=== PATIENT | female | born 2000 | race Caucasian/White ===

== ENCOUNTER 2022-11-24 08:00 | Outpatient (CLI) | payer OTHER ==
[2022-11-24 15:28] LABS: BILIRUBIN,URINE NEGATIVE (NEGATIVE); GLUCOSE, URINE (UA) NEGATIVE (NEGATIVE); KETONES,URINE (UA) NEGATIVE (NEGATIVE); LEUKOCYTE ESTERASE, URINE MODERATE (NEGATIVE); NITRITE,URINE NEGATIVE (NEGATIVE); OCCULT BLOOD,URINE NEGATIVE (NEGATIVE); PROTEIN,URINE NEGATIVE (NEGATIVE); UROBILINOGEN,URINE 0.2 (NORMAL) E.U./dL (NORMAL)
[2022-11-24 15:41] LABS: BACTERIA,URINE Few /HPF (None Seen); CLARITY,URINE HAZY (CLEAR); RBC,URINE 0-5 /HPF (0-5); SQUAMOUS EPITHELIAL CELL,UR MOD Squamous (<= Few); WBC,URINE >25 /HPF (0-5)
== END 2022-11-24 23:59 | disposition home or self-care (01) ==
LOC: LAB.WC 08:00
PROVIDERS: ATTEND Obstetrics & Gynecology
DX: Z34.00 Encounter for supervision of normal first pregnancy, unspecified trimester (principal)
CPT/HCPCS: 81001; 87086

== ENCOUNTER 2022-12-07 16:59 | Outpatient (CLI) | payer OTHER ==
[2022-12-07 17:57] LABS: BASOPHILS # (AUTO) 0.1 10^3/uL (0.0-0.1); BASOPHILS % (AUTO) 0.4 %; EOSINOPHILS # (AUTO) 0.1 10^3/uL (0.0-0.7); EOSINOPHILS % (AUTO) 1.1 %; HCT - HEMATOCRIT 36.1 % (37.0-47.0); HGB - HEMOGLOBIN 12.4 g/dL (12.0-16.0); LYMPHOCYTES # (AUTO) 2.9 10^3/uL (1.5-3.5); LYMPHOCYTES % (AUTO) 23.1 %; MEAN CORPUSCULAR HEMOGLOBIN 31.2 pg (27.0-31.0); MEAN CORPUSCULAR HGB CONC 34.3 g/dL (32.0-36.0); MEAN CORPUSCULAR VOLUME 90.7 fL (81.0-99.0); MEAN PLATELET VOLUME 9.5 fL (7.9-10.8); MONOCYTES % (AUTO) 7.6 %; NEUTROPHILS # (AUTO) 8.5 10^3/uL (1.5-6.6); NEUTROPHILS % (AUTO) 67.4 %; PLT - PLATELET COUNT 253 10^3/uL (130-450); RED BLOOD COUNT 3.98 10^6/uL (4.20-5.40); RED CELL DISTRIBUTION WIDTH 12.1 % (12.0-15.0); WHITE BLOOD COUNT 12.7 x10^3/uL (4.8-10.8)
--- NOTE | 2022-12-08 10:08 | Ultrasound Report ---
PROCEDURE: OB First Trimester w/TV INDICATIONS: TEST POSTIVIE OUTSIDE/PRIOR DATING DATA: Last menstrual period (LMP): 10/05/2022. LMP-based estimated date of delivery (ELGIN): 07/12/2023. First dating scan (date and location): 12/07/2022. Estimated date of delivery (ELGIN) from first dating scan: 07/14/2023. The below data below was generated using the ultrasound ELGIN of 07/14/2023 TECHNIQUE: Real-time scanning was performed of the fetus and maternal pelvic organs, with image documentation. Endovaginal scanning was also performed to better visualize the fetus and maternal ovaries. COMPARISON: None FINDINGS: Single living intrauterine . Embryo: 2.1 cm, corresponding to 8 weeks 5 days. Heart rate: 173 bpm. Measurement variability in dating: +/- 4 weeks by LMP, +/- 7 days by mean sac diameter (use before 6 weeks gestation if crown-rump length not able to be measured), +/- 5 days by crown-rump length (6-12 weeks gestation). Maternal organs: Ovaries are unremarkable. IMPRESSION: Single living intrauterine at 8 weeks 5 days, ELGIN of 07/14/2023. Reviewed by: Sterling Carroll on 12/08/2022 10:06 AM PDT Approved by: Sterling Carroll on 12/08/2022 10:06 AM PDT Station ID: [id number]
[2022-12-09 08:10] LABS: RPR Non Reactive (Non Reactive)
[2022-12-09 10:09] LABS: HBsAG SCREEN Negative (Negative)
[2022-12-09 11:10] LABS: VARICELLA-ZOSTER AB IGG 336 index (Immune >165)
[2022-12-10 00:08] LABS: HCV AB Non Reactive (Non Reactive); HIV SCREEN 4TH GENERATION Non Reactive (Non Reactive)
== END 2022-12-07 17:00 | disposition home or self-care (01) ==
LOC: DI 16:59
PROVIDERS: ATTEND Obstetrics & Gynecology
DX: Z34.01 Encounter for supervision of normal first pregnancy, first trimester (principal); Z3A.08 8 weeks gestation of pregnancy; Z36.89 Encounter for other specified antenatal screening
CPT/HCPCS: 36415; 85025; 86592; 86762; 86787; 86803; 86850; 86900; 86901; 87340; 87389

== ENCOUNTER 2022-12-23 08:00 | Outpatient (CLI) | payer OTHER ==
[2022-12-23 19:34] LABS: BACTERIAL VAGINOSIS DNA NEGATIVE (NEGATIVE)
[2022-12-23 19:35] LABS: CANDIDA GLABRATA DNA NEGATIVE (NEGATIVE); CANDIDA GROUP DNA NEGATIVE (NEGATIVE); CANDIDA KRUSEI DNA NEGATIVE (NEGATIVE); TRICHOMONAS VAGINALIS DNA NEGATIVE (NEGATIVE)
== END 2022-12-23 23:59 | disposition home or self-care (01) ==
LOC: LAB.WC 08:00
PROVIDERS: ATTEND Obstetrics & Gynecology
DX: N76.0 Acute vaginitis (principal)
CPT/HCPCS: 81514

== ENCOUNTER 2023-01-13 08:00 | Outpatient (CLI) | payer OTHER ==
[2023-01-13 20:52] LABS: CHLAMYDIA TRACHOMATIS DNA NEGATIVE (NEGATIVE); NEISSERIA GONORRHOEAE DNA NEGATIVE (NEGATIVE); TRICHOMONAS VAGINALIS DNA NEGATIVE (NEGATIVE)
== END 2023-01-13 23:59 | disposition home or self-care (01) ==
LOC: LAB.WC 08:00
PROVIDERS: ATTEND Obstetrics & Gynecology
DX: Z11.3 Encounter for screening for infections with a predominantly sexual mode of transmission (principal)
CPT/HCPCS: 87491; 87591; 87661

== ENCOUNTER 2023-02-01 13:51 | Outpatient (CLI) | payer OTHER ==
[2023-02-03 20:07] LABS: AFP MOM 0.54 (.); AFP VALUE 19.7 ng/mL (.); DIA MOM 0.92 (.); DIA VALUE 130.31 pg/mL (.); DSR (BY AGE) 1 IN 1078 (.); DSR (SECOND TRIMESTER) 1 IN 898 (.); HCG MOM 1.11 (.); HCG VALUE 35447 mIU/mL (.); INSULIN DEP DIABETES No (.); MATERNAL AGE AT EDD 23.8 yr (.); MULTIPLE GESTATION No (.); OPEN SPINA BIFIDA RISK 1 IN 10000 (.); RACE Caucasian (.); RESULTS Report (.); TEST RESULTS *Screen Negative* (.); TRISOMY 18 RISK Not increased (.); UE3 MOM 0.59 (.); UE3 VALUE 0.67 ng/mL (.); WEIGHT 168 lbs (.)
== END 2023-02-01 13:52 | disposition home or self-care (01) ==
LOC: LAB 13:51
PROVIDERS: ATTEND Obstetrics & Gynecology
DX: Z34.01 Encounter for supervision of normal first pregnancy, first trimester (principal)
CPT/HCPCS: 36415; 81511

== ENCOUNTER 2023-02-02 20:23 | Emergency (ER) | payer OTHER ==
[2023-02-02 20:35] VITALS: BP 136/80
[2023-02-02 20:47] LABS: BASOPHILS % (AUTO) 0.3 %; EOSINOPHILS # (AUTO) 0.3 10^3/uL (0.0-0.7); EOSINOPHILS % (AUTO) 1.8 %; HCT - HEMATOCRIT 34.6 % (37.0-47.0); HGB - HEMOGLOBIN 11.7 g/dL (12.0-16.0); LYMPHOCYTES # (AUTO) 2.9 10^3/uL (1.5-3.5); LYMPHOCYTES % (AUTO) 18.9 %; MEAN CORPUSCULAR HEMOGLOBIN 30.4 pg (27.0-31.0); MEAN CORPUSCULAR HGB CONC 33.8 g/dL (32.0-36.0); MEAN CORPUSCULAR VOLUME 89.9 fL (81.0-99.0); MEAN PLATELET VOLUME 9.6 fL (7.9-10.8); MONOCYTES # (AUTO) 0.7 10^3/uL (0.0-1.0); MONOCYTES % (AUTO) 4.5 %; NEUTROPHILS # (AUTO) 11.3 10^3/uL (1.5-6.6); PLT - PLATELET COUNT 267 10^3/uL (130-450); RED BLOOD COUNT 3.85 10^6/uL (4.20-5.40); RED CELL DISTRIBUTION WIDTH 12.3 % (12.0-15.0); WHITE BLOOD COUNT 15.2 x10^3/uL (4.8-10.8)
[2023-02-02] MEDS ORDERED: MAG HYDROX/AL HYDROX/SIMETH 30 ML UDC PO STA (20:48)
[2023-02-02 21:01] LABS: ALBUMIN 3.5 g/dL (3.2-5.5); ALBUMIN/GLOBULIN RATIO 0.9 (1.0-2.2); BILIRUBIN,TOTAL 0.3 mg/dL (0.2-1.0); CALCIUM 9.3 mg/dL (8.5-10.3); CREATININE 0.7 mg/dL (0.4-1.0); POTASSIUM 3.2 mmol/L (3.5-5.0); TOTAL PROTEIN 7.2 g/dL (6.7-8.2)
--- NOTE | 2023-02-02 21:03 | ED Physician Documentation ---
History of Present Illness - Stated complaint Stated Complaint: PREG/ABD PX - Chief complaint Chief Complaint: Abd Pain - Additonal information Additional information: 22-year-old female who reports herself as 17 weeks presents to the emergency department for evaluation of upper abdominal pain and concerns that she may be having vaginal bleeding. She states that she has a sensation of her stomach being full and some heartburn. However this afternoon after urinating when she wiped there was small drops of blood on the tissue paper. She is not certain if she is having vaginal bleeding and thinks it may be due to a filipe as she did shave her pubic area today though does not remember a laceration. Patient is Rh Negative. G3, P0 Review of Systems Constitutional: reports: Reviewed and negative Throat: reports: Reviewed and negative Cardiac: reports: Reviewed and negative Respiratory: reports: Reviewed and negative : reports: Vaginal bleeding Skin: reports: Reviewed and negative Musculoskeletal: reports: Reviewed and negative PD PAST MEDICAL HISTORY - Present Medications Home Medications: Ambulatory Orders Medication Instructions Recorded Confirmed Azithromycin [Zithromax] 1 gm PO ONCE #1 packet 12/12/22 - Allergies Allergies/Adverse Reactions: Allergies Allergy/AdvReac Type Severity Reaction Status Date / Time No Known Drug Allergies Allergy Verified 02/02/23 20:32 PD ED PE NORMAL - General General: Alert and oriented X 3, No acute distress - HEENT HEENT: Atraumatic, Moist mucous membranes - Neck Neck: Supple, no meningeal sign, No adenopathy - Cardiac Cardiac: RRR, No murmur - Respiratory Respiratory: No respiratory distress, Clear bilaterally - Abdomen Abdomen: Normal bowel sounds, Soft - Female Female : Vulcanizer Operator present, Other (No obvious vaginal laceration or labial neck after shaving. No obvious vaginal bleeding) - Back Back: No CVA TTP - Derm Derm: Normal color - Extremities Extremities: No deformity - Neuro Neuro: Alert and oriented X 3 Eye Opening: Spontaneous Motor: Obeys Commands Verbal: Oriented GCS Score: 15 Results - Vitals Vitals: Vital Signs - 24 hr 02/02/23 20:26 Temperature 36.4 C L Heart Rate 80 Respiratory 20 Rate Blood Pressure 136/80 H O2 Saturation 98 - Labs Labs: Laboratory Tests 02/02/23 02/02/23 02/02/23 20:42 20:42 20:53 WBC 15.2 H RBC 3.85 L Hgb 11.7 L Hct 34.6 L MCV 89.9 MCH 30.4 MCHC 33.8 RDW 12.3 Plt Count 267 MPV 9.6 Neut # (Auto) 11.3 H Lymph # (Auto) 2.9 [place] # (Auto) 0.7 Eos # (Auto) 0.3 Baso # (Auto) 0.0 Absolute Nucleated RBC 0.00 Nucleated RBC % 0.0 Sodium 136 Potassium 3.2 L Chloride 105 Carbon Dioxide 24 Anion Gap 7.0 BUN 10 Creatinine 0.7 Estimated GFR (MDRD) 104 Glucose 124 H Calcium 9.3 Total Bilirubin 0.3 AST 18 ALT 22 Alkaline Phosphatase 42 Total Protein 7.2 Albumin 3.5 Globulin 3.7 Albumin/Globulin Ratio 0.9 L Lipase 37 Urine Color YELLOW Urine Clarity CLEAR Urine pH 6.0 Ur Specific [place] 1.015 Urine Protein NEGATIVE Urine Glucose (UA) NEGATIVE Urine Ketones NEGATIVE Urine Occult Blood NEGATIVE Urine Nitrite NEGATIVE Urine Bilirubin NEGATIVE Urine Urobilinogen 0.2 (NORMAL) Ur Leukocyte Esterase NEGATIVE Ur Microscopic Review NOT INDICATED Urine Culture Comments NOT INDICATED - Rads (name of study) OB limited Relevant Findings:: Other (Per mechanical engineering technologist good heart rate and movement. Normal-appearing placenta.) PD Medical Decision Making - ED course Complexity details: reviewed results, re-evaluated patient, d/w patient ED course: 22-year-old female presents the emergency department for evaluation which she was concerned could be vaginal bleeding. She had shaved her vaginal area today and does not remember cutting herself. However this afternoon when she urinated she wiped and found a little bit of blood on the tissue paper. She has not had a reoccurrence of it since. Patient is G3, P0. Being followed by our OB department. She is Rh-. I did obtain a CBC today that shows mild leukocytosis not unexpected given gestation as well as a mild anemia with a hemoglobin of 11.3. Her electrolytes were without acute worrisome findings. Her urinalysis showed no signs of infection. The limited OB ultrasound at the bedside showed good movement and heart rate with a normal-appearing placenta and no secondary findings for concern of placental abruption or subchorionic hemorrhage. Cervix was closed. However I did very briefly discussed this case with Dr. Pantoja OB on-call regarding the patient's concern for vaginal bleeding. I had no evidence of vaginal bleeding on my limited exam of her region. Dr. Pantoja does not feel that RhoGAM is necessary at this time unless she should have a recurrence of bleeding or new symptoms. Departure - Departure Disposition: 01 Home, Self Care Clinical Impression: Upper abdominal pain, Second trimester Condition: Stable Record reviewed to determine appropriate education?: Yes Comments: Yarelis you came to the emergency department today because you began to have some upper abdominal pain after eating [employer] and a Sprite. You most likely simply have gastritis or gas pains. I would recommend small frequent snacks and meals as opposed to 2 or 3 larger meals through the day. You can take [id number] Maalox or Tums for any indigestion. You did shave your pubic area today and on my evaluation I had no evidence of vaginal bleeding or any nicks or tears that could have explain the drops of blood you saw. We did do a very limited ultrasound at the bedside that shows the baby is doing well with normal heart rate and movement. Your cervix was closed and your placenta appears normal. You are Rh- and I very briefly discussed this case with our production internship on- call. She would not recommend RhoGAM for you at this time as you do not seem to be having active vaginal bleeding. However should the symptoms recur you do need to return immediately to the ER and RhoGAM would then be administered. Please discuss this ED visit with your OB provider as soon as possible to see if they want to arrange sooner follow-up
[2023-02-02 21:04] LABS: BILIRUBIN,URINE NEGATIVE (NEGATIVE); GLUCOSE, URINE (UA) NEGATIVE (NEGATIVE); KETONES,URINE (UA) NEGATIVE (NEGATIVE); LEUKOCYTE ESTERASE, URINE NEGATIVE (NEGATIVE); NITRITE,URINE NEGATIVE (NEGATIVE); OCCULT BLOOD,URINE NEGATIVE (NEGATIVE); PROTEIN,URINE NEGATIVE (NEGATIVE); UROBILINOGEN,URINE 0.2 (NORMAL) E.U./dL (NORMAL)
[2023-02-02 21:06] LABS: CLARITY,URINE CLEAR (CLEAR)
--- NOTE | 2023-02-02 22:18 | Ultrasound Report ---
PROCEDURE: OB Limited INDICATIONS: vaginal bleeding OUTSIDE/PRIOR DATING DATA: Last menstrual period (LMP): 09/27/2022. LMP-based estimated date of delivery (ELGIN): 07/12/2023. First dating scan (date and location): 12/25/2022. Estimated date of delivery (ELGIN) from first dating scan: 07/14/2023. The below data below was generated using the ultrasound ELGIN of 07/14/2023 TECHNIQUE: Real-time scanning was performed of the fetus, with image documentation. COMPARISON: OB ultrasound 12/10/2022 FINDINGS: A single living intrauterine gestation is present. Presentation: Anterior Placenta: Placental position is anterior, without previa. Amniotic fluid index: Not evaluated. heart rate: 152 beats per minutes. Maternal cervical canal: Closed Estimated gestational age from initial scan: 16 weeks 6 days. . IMPRESSION: Single live intrauterine with gestational age 16 weeks 6 days. Amniotic fluid not evaluated due to early gestational age. Reviewed by: Giselle Cleaning MD on 02/02/2023 10:17 PM PDT Approved by: Giselle Cleaning MD on 02/02/2023 10:17 PM PDT Station ID: [id number]
== END 2023-02-02 22:16 | disposition home or self-care (01) ==
LOC: ED 20:23
DX: O26.892 Other specified pregnancy related conditions, second trimester (principal); Z3A.17 17 weeks gestation of pregnancy; R10.10 Upper abdominal pain, unspecified
CPT/HCPCS: 36415; 76815; 80053; 81003; 83690; 85025; 99283; 99284; A9270; 81001; 87086

== ENCOUNTER 2023-04-15 10:33 | Outpatient (CLI) | payer OTHER ==
[2023-04-15 11:47] LABS: HCT - HEMATOCRIT 36.1 % (37.0-47.0); HGB - HEMOGLOBIN 11.6 g/dL (12.0-16.0); MEAN CORPUSCULAR HEMOGLOBIN 29.9 pg (27.0-31.0); MEAN CORPUSCULAR HGB CONC 32.1 g/dL (32.0-36.0); MEAN PLATELET VOLUME 9.7 fL (7.9-10.8); RED BLOOD COUNT 3.88 10^6/uL (4.20-5.40); WHITE BLOOD COUNT 12.5 x10^3/uL (4.8-10.8)
== END 2023-04-15 10:34 | disposition home or self-care (01) ==
LOC: LAB 10:33
PROVIDERS: ATTEND Obstetrics & Gynecology
DX: Z34.01 Encounter for supervision of normal first pregnancy, first trimester (principal); Z67.91 Unspecified blood type, Rh negative
CPT/HCPCS: 36415; 82950; 85027; 86850

== ENCOUNTER 2023-05-26 13:16 | Outpatient (CLI) | payer OTHER ==
--- NOTE | 2023-05-26 18:21 | Ultrasound Report ---
PROCEDURE: OB F/U or Repeat INDICATIONS: EXCESSIVE WEIGHT GAIN OUTSIDE/PRIOR DATING DATA: Last menstrual period (LMP): 10/05/2022. LMP-based estimated date of delivery (ELGIN): 07/12/2023. First dating scan (date and location): 12/07/2022. Estimated date of delivery (ELGIN) from first dating scan: 07/14/2023. The below data below was generated using the working ELGIN of 07/14/2023 TECHNIQUE: Real-time scanning was performed of the fetus, with image documentation and biometric measurements. Endovaginal scanning: Not performed. COMPARISON: 04/28/2023 FINDINGS: General: A single living intrauterine gestation is present. Presentation: Cephalic Placenta: Placental position is anterior, without previa. Amniotic fluid index: 11.7 cm, 24 percentile for gestational age. heart rate: 155 beats per minute. Maternal cervical canal: 4.3 cm long; normal length is 2.5 cm or more. biometrics: Biparietal diameter: 8.8 cm, 35 week 6 day Head circumference: 31.3 cm, 35 week 1 day Abdominal circumference: 31.7 cm, 35 week 4 day Femur length: 6.5 cm, 33 week 4 day Estimated gestational age from initial scan: 33 week 2 day Composite gestational age from present scan: 35 week 0 day Estimated weight and percentile: 2585 g, 90th percentile Measurement variability in biometric dating: +/- 10 days from 12-20 weeks gestation, +/- 2 weeks from 20-30 weeks gestation, +/- 3 weeks at 30 weeks gestation or more. Other: S/D ratios 2.8, 2.9, 2.3. Left renal pelvis 7 mm, right renal pelvis 8 mm. IMPRESSION: Single live intrauterine consistent with 35 week 0 day gestation by ultrasound. Estimated weight 258 5 g, 90th percentile Reviewed by: Franko Mora MD on 05/26/2023 5:19 PM AARON Approved by: Franko Mora MD on 05/26/2023 5:19 PM AARON Station ID: [id number]
== END 2023-05-26 13:17 | disposition home or self-care (01) ==
LOC: DI 13:16
PROVIDERS: ATTEND Obstetrics & Gynecology
DX: O26.03 Excessive weight gain in pregnancy, third trimester (principal); Z3A.35 35 weeks gestation of pregnancy

== ENCOUNTER 2023-06-01 08:00 | Outpatient (CLI) | payer OTHER ==
[2023-06-01 16:18] LABS: CREATININE,URINE 83.2 mg/dL; PROTEIN/CREATININE RATIO,URINE 0.2 (<=0.2)
[2023-06-01 19:53] LABS: CHLAMYDIA TRACHOMATIS DNA NEGATIVE (NEGATIVE); NEISSERIA GONORRHOEAE DNA NEGATIVE (NEGATIVE); TRICHOMONAS VAGINALIS DNA NEGATIVE (NEGATIVE)
== END 2023-06-01 23:59 | disposition home or self-care (01) ==
LOC: LAB.WC 08:00
PROVIDERS: ATTEND Obstetrics & Gynecology
DX: O12.00 Gestational edema, unspecified trimester (principal); O98.319 Other infections with a predominantly sexual mode of transmission complicating pregnancy, unspecified trimester; A56.09 Other chlamydial infection of lower genitourinary tract; Z11.3 Encounter for screening for infections with a predominantly sexual mode of transmission
CPT/HCPCS: 36415; 80053; 82570; 84156; 84550; 85027; 87491; 87591; 87661

== ENCOUNTER 2023-06-01 15:23 | Outpatient (CLI) | payer OTHER ==
[2023-06-01 15:32] LABS: HCT - HEMATOCRIT 32.8 % (37.0-47.0); HGB - HEMOGLOBIN 10.6 g/dL (12.0-16.0); MEAN CORPUSCULAR HEMOGLOBIN 28.2 pg (27.0-31.0); MEAN CORPUSCULAR HGB CONC 32.3 g/dL (32.0-36.0); MEAN CORPUSCULAR VOLUME 87.2 fL (81.0-99.0); MEAN PLATELET VOLUME 9.5 fL (7.9-10.8); RED BLOOD COUNT 3.76 10^6/uL (4.20-5.40); RED CELL DISTRIBUTION WIDTH 13.6 % (12.0-15.0); WHITE BLOOD COUNT 12.1 x10^3/uL (4.8-10.8)
[2023-06-01 15:54] LABS: ALBUMIN 3.6 g/dL (3.2-5.5); ALBUMIN/GLOBULIN RATIO 1.2 (1.0-2.2); BILIRUBIN,TOTAL 0.2 mg/dL (0.2-1.0); CALCIUM 9.3 mg/dL (8.5-10.3); CREATININE 0.6 mg/dL (0.6-1.3); POTASSIUM 3.8 mmol/L (3.5-4.5); TOTAL PROTEIN 6.7 g/dL (6.4-8.9); URIC ACID 3.3 mg/dL (2.3-6.6)
== END 2023-06-01 15:24 | disposition home or self-care (01) ==
LOC: LAB 15:23
PROVIDERS: ATTEND Obstetrics & Gynecology
DX: O12.00 Gestational edema, unspecified trimester (principal)
CPT/HCPCS: 36415; 80053; 84550; 85027

== ENCOUNTER 2023-06-15 08:00 | Outpatient (CLI) | payer OTHER ==
[2023-06-15 21:50] LABS: CHLAMYDIA TRACHOMATIS DNA NEGATIVE (NEGATIVE); NEISSERIA GONORRHOEAE DNA NEGATIVE (NEGATIVE); TRICHOMONAS VAGINALIS DNA NEGATIVE (NEGATIVE)
== END 2023-06-15 23:59 | disposition home or self-care (01) ==
LOC: LAB.WC 08:00
PROVIDERS: ATTEND Obstetrics & Gynecology
DX: Z36.85 Encounter for antenatal screening for Streptococcus B (principal)
CPT/HCPCS: 87491; 87591; 87661; 87797

== ENCOUNTER 2023-06-23 11:54 | Outpatient (CLI) | payer OTHER ==
--- NOTE | 2023-06-23 20:33 | Ultrasound Report ---
PROCEDURE: OB F/U or Repeat INDICATIONS: EXCESSIVE WEIGHT GAIN OUTSIDE/PRIOR DATING DATA: Last menstrual period (LMP): 09/27/2022 LMP-based estimated date of delivery (ELGIN): 07/12/2023. First dating scan (date and location): 12/07/2022. Estimated date of delivery (ELGIN) from first dating scan: 07/14/2023. The below data below was generated using the clinical ELGIN of 07/12/2023 TECHNIQUE: Real-time scanning was performed of the fetus, with image documentation and biometric measurements. COMPARISON: OB ultrasound 05/26/2023 FINDINGS: General: A single living intrauterine gestation is present. Presentation: Vertex Placenta: Placental position is anterior, without previa. Amniotic fluid index: 9.4 cm, lower limits of normal for gestational age. heart rate: 148 beats per minute. Maternal cervical canal: 3.7 cm long; normal length is 2.5 cm or more. biometrics: Biparietal diameter: 9.1 cm 37 weeks 1 day 63rd percentile Head circumference: 32.7 cm 37 weeks 1 day 23rd percentile Abdominal circumference: 34.2 cm 38 weeks 1 84th percentile Femur length: 6.9 cm 35 weeks 2 days 8 percentile Estimated gestational age from initial scan: 37 weeks 2 days Composite gestational age from present scan: 37 weeks 0 days Estimated weight and percentile: 3149 g 56th percentile Measurement variability in biometric dating: +/- 10 days from 12-20 weeks gestation, +/- 2 weeks from 20-30 weeks gestation, +/- 3 weeks at 30 weeks gestation or more. Other: Renal pelvis is at the upper limits of normal. IMPRESSION: Single live intrauterine with estimated weight at the 56th percentile Reviewed by: Giselle Cleaning MD on 06/23/2023 8:32 PM PST Approved by: Giselle Cleaning MD on 06/23/2023 8:32 PM PST Station ID: [id number]
== END 2023-06-23 11:55 | disposition home or self-care (01) ==
LOC: DI 11:54
PROVIDERS: ATTEND Obstetrics & Gynecology
DX: O26.03 Excessive weight gain in pregnancy, third trimester (principal); Z3A.37 37 weeks gestation of pregnancy

== ENCOUNTER 2023-06-29 15:49 | Outpatient (CLI) | payer OTHER ==
[2023-06-29 16:13] LABS: ALBUMIN 3.7 g/dL (3.2-5.5); ALBUMIN/GLOBULIN RATIO 1.3 (1.0-2.2); BILIRUBIN,TOTAL 0.2 mg/dL (0.2-1.0); CALCIUM 9.6 mg/dL (8.5-10.3); CREATININE 0.8 mg/dL (0.6-1.3); POTASSIUM 3.9 mmol/L (3.5-4.5); TOTAL PROTEIN 6.6 g/dL (6.4-8.9)
== END 2023-06-29 15:50 | disposition home or self-care (01) ==
LOC: LAB 15:49
PROVIDERS: ATTEND Obstetrics & Gynecology
DX: L29.9 Pruritus, unspecified (principal)
CPT/HCPCS: 36415; 80053; 82239

== ENCOUNTER 2023-07-03 10:12 | Inpatient (IN) | payer OTHER ==
[2023-07-03 10:44] LABS: RUPTURE OF MEMBRANES PLUS POSITIVE (NEGATIVE)
[2023-07-03] MEDS ORDERED: LACTATED RINGERS 1,000 ML IV PRN (11:00)
[2023-07-03] MEDS ORDERED: LABETALOL 20 MG/4 ML SYRINGE IVP PRN ×3 (11:00)
[2023-07-03] MEDS ORDERED: miSOPROStoL 200 MCG TABLET PR PRN (11:00)
[2023-07-03] MEDS ORDERED: OXYTOCIN/SODIUM CHLORIDE 500 ML IV PRN (11:00)
[2023-07-03] MEDS ORDERED: TERBUTALINE 1 MG/ML VIAL SUBQ PRN (11:00)
[2023-07-03] MEDS ORDERED: NIFEdipine 10 MG CAPSULE PO PRN (11:00)
[2023-07-03] MEDS ORDERED: OXYTOCIN 10 UNIT/ML VIAL IM PRN (11:00)
[2023-07-03] MEDS ORDERED: CARBOPROST TROMETHAMINE 250 MCG/ML AMP IM PRN (11:00)
[2023-07-03] MEDS ORDERED: METHYLERGONOVINE 0.2 MG/ML VIAL IM PRN (11:00)
[2023-07-03] MEDS ORDERED: lidocaine 1% 20 ML MDV ID PRN (11:00)
[2023-07-03] MEDS ORDERED: miSOPROStoL 200 MCG TABLET BC PRN (11:00)
[2023-07-03] MEDS ORDERED: hydrALAZINE INJ 20 MG/ML VIAL IVP PRN ×2 (11:00)
[2023-07-03] MEDS ORDERED: SODIUM CHLORIDE FLUSH 0.9% 10 ML SYRINGE IVP PRN (11:00)
[2023-07-03] MEDS ORDERED: TRANEXAMIC ACID IN NACL 1,000 MG/100 ML BAG IV PRN (11:00)
[2023-07-03] MEDS ORDERED: AMPICILLIN 2 GM in SODIUM CHLORIDE 0.9% MINIBAG 100 ML IV ONE (11:04)
--- NOTE | 2023-07-03 11:19 | HISTORY & PHYSICAL EXAMINATION ---
Admit History - Visit Reason Visit Reason: Membranes rupture - : 3 Parity: 0 : 2 - Mother's Labs Mother's Blood Type: positive: A Mother's RH: positive: Negative GBS: positive: Group B Strep Positive Rubella Status: positive: Immune - Other Maternal History Other Maternal History: HPI: 21-year-old at 38 weeks 5 days gestation by LMP consistent with 8-week ultrasound presented today for leaking of fluid. She has good movement. No NOONAN/BV or RUQP. No vaginal bleeding. Denies nausea and vomiting. Denies urinary urgency or dysuria. All other symptoms reviewed and were negative except per HPI. Course LMP: 10/05/2022 ELGIN by LMP: 07/12/2023 Initial US Date 12/2022, US Age 8 weeks 5 days, ELGIN by ultrasound: 07/14/2023 Final ELGIN: 07/12/2023 by LMP consistent with 8-week ultrasound [place] in : Rescreen done 06/15 Excessive weight gain in [X] 3rd tri U/S EFW 1597g, 82%ile [X] eating fruit, veg, smoothies. headache and swelling 05/31. labs ordered H/H 10.6/32.8 plt 284 CMP-wnl iron started. headaches and swelling better 06/21/23 Renal pelviectasis: Bilateral renal pelviectasis. Mild, increased at 3rd tri U/S. Should have ultrasound. Pruritis: CMP, Bile acids ordered. Pre- Weight: 155 BMI: 29.26 Blood type: Aneg RhoGAM given 04/21 Antibody: negative CBC: PLT-253 HCT-36.1 HGB-12.4 RUB: immune VZV: immune HBsAg: negative HepC: non reactive RPR/AB-EIA: nonreactive HIV:non reactive PAP: pt states 3 paps, all at outside clinics, not [place]. all wnl GC/CT:POS in 1st , Rescreen collected 01/13/23-Negative, rescreen 06/01 negative HSV:Denies Genetic testing: NIPT not approved by insurance. Quad screen-Negative Covid: Vaccinated x 2 Flu: 05/05RSV 06/08/23 FAS:ordered 01/13 Placenta:Anterior w/o previa Cord:3VC PAULA:Normal EFW:319g 55th%ile 50gm OGCT: 119 3HR GTT: TDAP:04/21 Breast Pump:04/21 Antibody screen: 04/15/23 Negative RhoGAM given 04/21 3rd trimester 11.6/36.1 286 GBS: collected 06/15 POSITIVE Third trimester GC/CT collected 06/15 negative Delivery plan: , likely wants epidural. Considering IOL 39-40 weeks Contraception: 6-week paragard vs Mirena PMH Reactive airway disease Acid reflux History of chlamydia PSH Denies previous surgeries OB History 1. 10/26/2019 6-week, therapeutic termination 2. 09/13/2020, 6 weeks, spontaneous SH Denies tobacco, alcohol, drugs Family History Mother: Diabetes Maternal grandfather: Diabetes Allergies No known drug allergies Medications vitamin Iron Hydroxyzine Pepcid Physical exam: General: Alert, oriented, no acute distress Head: Normal cephalic atraumatic Eyes: PERRLA, extraocular motions intact. Respiratory: Normal rate of respiration. No accessory muscle use, normal respiratory effort. Cardiovascular: Regular rate and rhythm Abdomen: Gravid, nontender, nondistended Extremities: Normal range of motion Neuro: Oriented x3. Normal movements Psych: Appropriate mood and affect. Normal judgment and insight SVE: 0/0/-3 FHT: 145 bpm baseline, moderate variability, accelerations present, no decelerations. [place]: Quiescent Plan 22-year-old -0-1-0 at 38 weeks 5 days gestation admitted for prelabor rupture of membranes 1. Prelabor rupture of membranes -Will do 2 doses of buccal misoprostol followed by oxytocin. -Admit to L&D, admit labs, epidural at patient's request, anticipate 2. 38 weeks gestation 3. Obesity secondary to her excessive caloric intake 4. History of chlamydia, - 06/25/2023 5. Excessive weight gain in 6. bilateral renal peviectasis -Left 7mm, Right 8 mm - HPI Vital Signs Temperature 98.1 F 07/03/23 10:24 Heart Rate 129 H 07/03/23 10:24 Respiratory Rate 19 07/03/23 10:24 Blood Pressure 133/87 H 07/03/23 10:24 Temperature 98.1 F 07/03/23 10:24 Heart Rate 129 H 07/03/23 10:24 Respiratory Rate 19 07/03/23 10:24 Blood Pressure 133/87 H 07/03/23 10:24 O2 Saturation If not protocol: Oxygen Flow, liters/minute Meds/Allgy - Home Medications Home Medications: Ambulatory Orders Medication Instructions Recorded Confirmed Azithromycin [Zithromax] 1 gm PO ONCE #1 packet 12/12/22 - Allergies Allergies/Adverse Reactions: Allergies Allergy/AdvReac Type Severity Reaction Status Date / Time No Known Drug Allergies Allergy Verified 02/02/23 20:32 Physical - Abdominal Exam Vital Signs: Temp Pulse Resp BP Pulse Ox O2 Flow Rate 98.1 F 129 H 19 133/87 H 07/03/23 10:24 07/03/23 10:24 07/03/23 10:24 07/03/23 10:24 Plan for Labor - Plan For Labor I expect patient to be DC'd or transferred within 96 hours.: Yes
[2023-07-03 12:13] LABS: BASOPHILS % (AUTO) 0.3 %; EOSINOPHILS # (AUTO) 0.1 10^3/uL (0.0-0.7); EOSINOPHILS % (AUTO) 0.9 %; HCT - HEMATOCRIT 34.1 % (37.0-47.0); HGB - HEMOGLOBIN 10.6 g/dL (12.0-16.0); LYMPHOCYTES # (AUTO) 1.5 10^3/uL (1.5-3.5); LYMPHOCYTES % (AUTO) 14.4 %; MEAN CORPUSCULAR HEMOGLOBIN 27.1 pg (27.0-31.0); MEAN CORPUSCULAR HGB CONC 31.1 g/dL (32.0-36.0); MEAN CORPUSCULAR VOLUME 87.2 fL (81.0-99.0); MEAN PLATELET VOLUME 9.8 fL (7.9-10.8); MONOCYTES # (AUTO) 0.6 10^3/uL (0.0-1.0); MONOCYTES % (AUTO) 5.7 %; NEUTROPHILS # (AUTO) 8.2 10^3/uL (1.5-6.6); NEUTROPHILS % (AUTO) 78.1 %; PLT - PLATELET COUNT 293 10^3/uL (130-450); RED BLOOD COUNT 3.91 10^6/uL (4.20-5.40); WHITE BLOOD COUNT 10.5 x10^3/uL (4.8-10.8)
[2023-07-03] MEDS: LACTATED RINGERS 1,000 ML IV SCH (12:18)
[2023-07-03] MEDS: miSOPROStoL 100 MCG TABLET BC SCH ×2 (12:53→17:18)
[2023-07-03] MEDS: AMPICILLIN 1 GM in SODIUM CHLORIDE 0.9% MINIBAG 100 ML IV SCH ×2 (16:17→20:06)
[2023-07-03] MEDS: SODIUM CHLORIDE FLUSH 0.9% 10 ML SYRINGE IVP SCH ×2 (16:17→17:18)
[2023-07-03] MEDS: hydrOXYzine PAMOATE 25 MG CAPSULE PO PRN (19:55)
[2023-07-03] MEDS ORDERED: OXYTOCIN/SODIUM CHLORIDE 500 ML IV SCH (21:00)
[2023-07-04] MEDS: AMPICILLIN 1 GM in SODIUM CHLORIDE 0.9% MINIBAG 100 ML IV SCH ×2 (00:21→04:03)
[2023-07-04] MEDS: fentaNYL 100 MCG/2 ML VIAL IVP PRN ×2 (00:22→01:33)
[2023-07-04] MEDS ORDERED: ROPIVACAINE 0.2% 200 MG/100 ML BAG EP ONE (02:15)
--- NOTE | 2023-07-04 02:37 | ANESTHESIA ---
Pre-Anesthesia VS, & Labs - Diagnosis Active labor - Procedure vaginal delivery Vital Signs: Temp Pulse Resp BP Pulse Ox O2 Flow Rate 36.7 C 99 15 131/87 H 07/03/23 11:46 07/03/23 11:46 07/03/23 11:46 07/03/23 11:46 Height: 5 ft 1 in Weight (kg): 97.976 kg Body Mass Index: 40.8 BMI Classification: Morbidly Obese - NPO Last Fluid Intake: clear liquids - Is Patient ?: Yes - Lab Results Current Lab Results: Laboratory Tests 07/03/23 12:07: Blood Type A NEGATIVE, Antibody Screen NEGATIVE 07/03/23 12:07: WBC 10.5, RBC 3.91 L, Hgb 10.6 L, Hct 34.1 L, MCV 87.2, MCH 27.1, MCHC 31.1 L, RDW 15.0, Plt Count 293, MPV 9.8, Neut # (Auto) 8.2 H, Lymph # (Auto) 1.5, [place] # (Auto) 0.6, Eos # (Auto) 0.1, Baso # (Auto) 0.0, Absolute Nucleated RBC 0.00, Nucleated RBC % 0.0 Lab results reviewed: Yes Fish Bones: 07/03/23 12:07 Home Medications and Allergies Active Medications Carboprost Tromethamine (Carboprost Tromethamine 250 Mcg/Ml Amp) 250 mcg IM .ONCE PRN PRN Reason: Hemorrhage Fentanyl (Fentanyl 100 Mcg/2 Ml Vial) 50 mcg IVP Q1H PRN PRN Reason: Severe Pain (score 7-10) Last Admin: 07/04/23 01:33 Dose: 50 mcg Hydralazine HCl (Hydralazine Inj 20 Mg/Ml Vial) 10 mg IVP .ONCE PRN; Protocol PRN Reason: SBP> or= 160 OR DBP> or= 110 Hydralazine HCl (Hydralazine Inj 20 Mg/Ml Vial) 5 - 10 mg IVP Q20M PRN; Protocol PRN Reason: SBP> or= 160 OR DBP> or= 110 Hydroxyzine Pamoate (Hydroxyzine Pamoate 25 Mg Capsule) 25 mg PO Q6HR PRN PRN Reason: ITCHING Last Admin: 07/03/23 19:55 Dose: 25 mg Oxytocin/Sodium Chloride (Pitocin/Sodium Chloride) 500 mls @ 999 mls/hr IV PRN PRN; Protocol PRN Reason: POST- HEMORR PREVENTION Tranexamic Acid (Tranexamic 1,000 Mg/100ml-Nacl) 1,000 mg in 100 mls @ 600 mls/hr IV Q30M PRN PRN Reason: EBL >1200mL and within 3hr Lactated Ringer's (Lr) 1,000 mls @ 125 mls/hr IV .Q8H [facility] Last Infusion: 07/03/23 22:05 Dose: 125 mls/hr Lactated Ringer's (Lr) 1,000 mls @ 999 mls/hr IV PRN PRN PRN Reason: PER PHYSICIAN ORDER Ampicillin Sodium 1 gm/ Sodium (Chloride) 100 mls @ 200 mls/hr IV Q4H [facility] Last Admin: 07/04/23 00:21 Dose: 200 mls/hr Oxytocin/Sodium Chloride (Pitocin/Sodium Chloride) 500 mls @ 1 mls/hr IV TITR ISSA; Protocol Last Titration: 07/03/23 23:05 Dose: 3 milliunit/min, 3 mls/hr Labetalol HCl (Labetalol 20 Mg/4 Ml Syringe) 20 mg IVP .ONCE PRN; Protocol PRN Reason: SBP> or= 160 OR DBP> or= 110 Labetalol HCl (Labetalol 20 Mg/4 Ml Syringe) 20 - 80 mg IVP Q10M PRN; Protocol PRN Reason: SBP> or= 160 OR DBP> or= 110 Labetalol HCl (Labetalol 20 Mg/4 Ml Syringe) 20 - 40 mg IVP Q10M PRN; Protocol PRN Reason: SBP> or= 160 OR DBP> or= 110 Lidocaine HCl (Lidocaine 1% 20 Ml Mdv) 20 ml ID .ONCE PRN PRN Reason: PERINEAL REPAIR Stop: 07/06/23 11:01 Methylergonovine Maleate (Methylergonovine 0.2 Mg/Ml Vial) 0.2 mg IM .ONCE PRN PRN Reason: Hemorrhage Misoprostol (Misoprostol 200 Mcg Tablet) 600 mcg BC .ONCE PRN PRN Reason: Hemorrhage Misoprostol (Misoprostol 200 Mcg Tablet) 800 mcg [place] .ONCE PRN PRN Reason: Hemorrhage Misoprostol (Misoprostol 100 Mcg Tablet) 25 mcg BC Q4H [facility] Last Admin: 07/03/23 17:18 Dose: 25 mcg Nifedipine (Nifedipine 10 Mg Capsule) 10 - 20 mg PO Q20M PRN; Protocol PRN Reason: SBP> or= 160 OR DBP> or= 110 Oxytocin (Oxytocin 10 Unit/Ml Vial) 10 unit IM .ONCE PRN PRN Reason: Step One if no IV access. Sodium Chloride (Sodium Chloride Flush 0.9% 10 Ml Syringe) 10 ml IVP Q8H [facility] Last Admin: 07/03/23 17:18 Dose: 10 ml Sodium Chloride (Sodium Chloride Flush 0.9% 10 Ml Syringe) 10 ml IVP PRN PRN PRN Reason: NEEDED PER PROVIDER ORDERS Terbutaline Sulfate (Terbutaline 1 Mg/Ml Vial) 0.25 mg SUBQ .ONCE PRN PRN Reason: Tachystole Allergies/Adverse Reactions: Allergies Allergy/AdvReac Type Severity Reaction Status Date / Time No Known Drug Allergies Allergy Verified 02/02/23 20:32 Anes History & Medical History - Anesthetic History Family history of Anesthesia Complications: Denies Family history of Malignant Hyperthermia: Denies - Medical History Cardiovascular: reports: None Pulmonary: reports: None Gastrointestinal: reports: None Urinary: reports: None Neuro: reports: None Musculoskeletal: reports: Scoliosis (possible, never diagnosed) Endocrine/Autoimmune: reports: None Blood Disorders: reports: None Skin: reports: None Smoking Status: Never smoker Psychosocial: reports: No issues indicated History of Cancer?: No - Obstetrical History : 3 Parity: 0 Events: reports: None Complications: reports: None Exam General: Alert, Oriented x3, Cooperative, No acute distress Dental: WNL Mouth Openin Fingerbreadth Neck Mobility: Normal Mallampati classification: III Thyromental Distance: 4-6 cm Mental/Cognitive Status: Alert/Oriented X3, Normal for patient Plan Anesthesia Type: Epidural Consent for Procedure(s) Verified and Reviewed: Yes Code Status: Attempt Resuscitation ASA classification: 2-Mild systemic disease Is this case an emergency?: No
[2023-07-04] MEDS ORDERED: ROPIVACAINE 0.2% 200 MG/100 ML BAG EP PRN (02:40)
[2023-07-04] MEDS ORDERED: ePHEDrine 50 MG/ML VIAL IVP PRN ×3 (02:40→09:39)
[2023-07-04] MEDS ORDERED: NALOXONE 0.4 MG/ML VIAL IVP PRN ×3 (02:40→09:39)
[2023-07-04] MEDS: LACTATED RINGERS 1,000 ML IV SCH (03:55)
[2023-07-04] MEDS ORDERED: SODIUM CHLORIDE 0.9% 1,000 ML IY ONE (05:53)
[2023-07-04] MEDS ORDERED: ONDANSETRON 4 MG/2 ML VIAL IVP PRN ×3 (05:54→09:39)
--- NOTE | 2023-07-04 05:57 | PROVIDER PROGRESS NOTE ---
Labor Progress Note - Uterine Monitoring Uterine Monitoring Mode: positive: External toco Contraction Frequency (min/apart): 2-4 - Monitoring Monitor Mode: positive: External ultrasound Heart Rate Baseline: 165 Heart Rate Variability: positive: Moderate (6-25 bmp) Accelerations: positive: Present, 15x15 Decelerations: positive: Late, Variable, Recurrent (>50% x20 min) Strip Review: positive: Category II - Labor Progress Note Labor Progress Note/Additional Text: Patient currently afebrile with tachycardia to 165, Moderate variability with periods of minimal. Mixed late and variable decelerations. Will place IUPC. Will start amnioinfusion with 250ml bolus and 125ml/hour continuous after.
[2023-07-04] MEDS ORDERED: SODIUM CHLORIDE 0.9% 1,000 ML ONE (06:10)
[2023-07-04] MEDS: CALCIUM CARBONATE CHEW 500 MG TABLET PO PRN (06:50)
--- NOTE | 2023-07-04 07:39 | PROVIDER PROGRESS NOTE ---
Labor Progress Note - Labor Progress Note Labor Progress Note/Additional Text: Patient continues to have frequently decelerations with long periods of minimal variability, tachycardia. Oxytocin was stopped, still remote from delivery. Discussed options, but at this point with inability to restart oxytocin, staying 5 cm, and intolerance of labor, discussed section. section was recommended. Risks, benefits and alternatives were discussed including but not limited to infection, bleeding that may require blood products or hysterectomy for life saving measures, injury to surrounding organs including but not limited to bowel, bladder, ureters, tubes and ovaries and/or the baby. Should injury occur it could require longer/additional surgery to repair. The patient stated understanding and desired to proceed. All questions were answered posed by patient. Will give cefazolin and azithromycin for surgical prophylaxis.
[2023-07-04] MEDS ORDERED: ceFAZolin (2G) 2 GM in SODIUM CHLORIDE 0.9% MINIBAG 100 ML IV ONE (08:00)
[2023-07-04] MEDS ORDERED: LACTATED RINGERS 1,000 ML IV SCH ×3 (08:00→10:00)
[2023-07-04] MEDS ORDERED: AZITHROMYCIN INJ 500 MG in SODIUM CHLORIDE 0.9% 250 ML IV ONE (08:00)
[2023-07-04] MEDS ORDERED: LIDOCAINE-PF 2% 10 ML AMP SUBQ ONE ×2 (08:13→08:55)
[2023-07-04] MEDS ORDERED: fentaNYL 100 MCG/2 ML VIAL ONE (08:47)
[2023-07-04] MEDS ORDERED: PHENYLEPHRINE HCL 0.5 MG/5 ML AMPULE ONE (08:53)
[2023-07-04] MEDS ORDERED: OXYTOCIN/SODIUM CHLORIDE 500 ML IV PRN (08:56)
[2023-07-04] MEDS ORDERED: ONDANSETRON ODT 4 MG TABLET TL PRN (08:56)
[2023-07-04] MEDS ORDERED: SODIUM CHLORIDE FLUSH 0.9% 10 ML SYRINGE IVP PRN (08:56)
[2023-07-04] MEDS ORDERED: SODIUM CHLORIDE FLUSH 0.9% 10 ML SYRINGE IVP SCH (09:00)
--- NOTE | 2023-07-04 09:00 | OPERATIVE REPORT ---
Operative Report - General Admit Date: 07/03/23 Procedure Date: 07/04/23 Planned Procedure: Primary low transverse section Pre-Op Diagnosis: intolerance of labor, category 2 tracing Procedure Performed: Primary low-transverse section Post Op Diagnosis: Status post primary low-transverse section - Procedure Note Primary Surgeon: Saul Faustin MD Secondary Surgeon: CLEMENCIA Martines Anesthesia Provider: Twin Best CRNA Anesthesia Technique: Epidural Pathology: None IV Fluids (mL): 1,500 Estimated Blood Loss (mL): 100 Urine Output (mL): 700 Findings: Normal-appearing uterus, tubes, ovaries. Small fibroid approxi-1 cm anterior. Clear fluid from amnioinfusion. Healthy appearing . Apgars of 8/9. - Other Other Information/Narrative: Patient presented after spontaneous rupture of membranes with prelabor rupture. She was given 2 doses of buccal misoprostol followed by oxytocin. Throughout the evening, she had a progressively worsening heart tracing with longer longer periods of minimal variability mixed with intermittent variable and late decelerations. As it became more consistent, amnioinfusion was started, and while variable decelerations resolved, late decelerations continued. Oxytocin could not be restarted, so given that she was remote from delivery, 5 cm, inability to augment with a category 2 tracing, decision was made to proceed with section. section was recommended. Risks, benefits and alternatives were discussed including but not limited to infection, bleeding that may require blood products or hysterectomy for life saving measures, injury to surrounding organs including but not limited to bowel, bladder, ureters, tubes and ovaries and/or the baby. Should injury occur it could require longer/additional surgery to repair. The patient stated understanding and desired to proceed. All questio ns were answered posed by patient. Prior to being taken to the OR, 2 g cefazolin and 500 mg azithromycin were administered. The patient was taken to the operating room where regional anesthesia was found to be adequate. She was then prepared and draped in the usual sterile fashion in the dorsal supine position with a leftward tilt displacing the uterus. Henry was draining to gravity. SCDs were on bilateral lower extremities. A pfannenstiel skin incision was then made with the scalpel and carried through to the underlying layer of fascia. The fascia was incised in the midline and the incision extended laterally with the Emery scissors. The superior aspect of the facial incision was then grasped with the Sanjuana clamps, elevated and the underlying rectus muscles dissected off sharply. Attention was then turned to the inferior aspect of this incision which in a similar fashion was grasped, elevated with the Sanjuana clamps and the rectus muscle dissected off sharply. The rectus muscles were in the midline. The peritoneum identified, grasped with the pick-ups and entered sharply with the Metzenbaum scissors. The peritoneal incision was then extended superiorly and inferiorly with good visualization of the bladder. The bladder blade was inserted. The vesicouterine peritoneum was identified, grasped with the pick-ups, and entered sharply with Metzenbaum scissors. This incision was then extended laterally and the bladder flap created digitally. The bladder blade was reinserted. The lower uterine segment was identified and incised in a transverse fashion with the scalpel. The uterine incision was then extended bluntly laterally. The bladder blade was removed. The fetus was in a cephalic presentation. The infants head delivered atraumatically. The anterior shoulders were delivered followed by the posterior shoulders then the remainder of the body. The infants mouth and nose were bulb suctioned. The umbilical cord was clamped times two and cut. The infant was handed to the pediatric team. The placenta was removed with gentle traction. Oxytocin was added to the IV fluid and was allowed to run freely. The uterus was exteriorized and cleared of all clots and debris. The uterine incision was inspected and found to be without any extensions and was repaired with 0 Vicryl in a running, locked fashion. A second imbricating layer was performed. Upon inspection, the repaired hysterotomy was found to be hemostatic. The uterus was firm and returned to the abdomen. The gutters were cleared of all clots and debris. The muscle layer was examined and found to be hemostatic. The fascia was reapproximated with 0 Vicryl in a running fashion. The subcutaneous tissue was closed with 2-0 Vicryl. The skin was closed in a subcuticular fashion with 4-0 Monocryl. The patient tolerated the procedure well. Sponge, lap and needle counts were correct times three. The patient was taken to the recovery room in stable condition. I appreciate the assistance of CLEMENCIA Martines during this procedure, and the assistance in retraction, visualization, dissection, and overall assistance during the case were instrumental to the patient's wellbeing.
[2023-07-04] MEDS ORDERED: MORPHINE PF 5 MG/10 ML VIAL ONE (09:05)
[2023-07-04] MEDS ORDERED: LACTATED RINGERS 700 ML IV ONE ×2 (09:20)
[2023-07-04] MEDS ORDERED: HYDROmorphone 0.5 MG/0.5 ML SYRINGE IVP PRN (09:30)
[2023-07-04] MEDS ORDERED: fentaNYL 100 MCG/2 ML VIAL IVP PRN (09:30)
[2023-07-04] MEDS ORDERED: ATROPINE ABBOJECT 1 MG/10 ML SYRINGE IVP PRN (09:30)
[2023-07-04] MEDS ORDERED: METOCLOPRAMIDE 10 MG/2 ML VIAL IVP PRN (09:39)
[2023-07-04] MEDS ORDERED: diphenhydrAMINE INJ 50 MG/ML VIAL IVP PRN (09:39)
[2023-07-04] MEDS ORDERED: BUPIVACAINE 0.5%-EPI 1:200000 PF 30 ML VIAL ONE (09:41)
[2023-07-04] MEDS ORDERED: PROPOFOL 500 MG/50 ML 0 MG/0 ML VIAL ONE (10:33)
--- NOTE | 2023-07-04 11:04 | ANESTHESIA POST OP EVALUATION ---
Anesthesia Post Eval - Post Anesthesia Eval Vitals: Last Vital Signs Temp 36.7 C 07/04/23 09:45 Pulse 83 07/04/23 09:45 Resp 11 L 07/04/23 09:45 BP 131/84 H 07/04/23 09:45 Pulse Ox 99 07/04/23 09:45 O2 Flow Rate CV Function Including HR & BP: Stable Pain Control: Satisfactory Nausea & Vomiting: Negative Mental Status: Baseline Respiratory Status: Airway Patent Hydration Status: Satisfactory Anesthesia Complications: None
[2023-07-04] MEDS: oxyCODONE 5 MG TABLET PO PRN ×2 (13:07→23:58)
[2023-07-04] MEDS: KETOROLAC 30 MG/ML VIAL IVP SCH ×2 (14:57→20:45)
[2023-07-04] MEDS: ACETAMINOPHEN 500 MG TABLET PO SCH (16:44)
[2023-07-04] MEDS: NALBUPHINE 10 MG/ML AMP IVP PRN ×2 (16:55→20:46)
[2023-07-04] MEDS: DOCUSATE SODIUM 100 MG CAPSULE PO SCH ×2 (17:44→20:57)
[2023-07-05] MEDS: ACETAMINOPHEN 500 MG TABLET PO SCH ×3 (01:45→19:28)
[2023-07-05] MEDS: oxyCODONE 5 MG TABLET PO PRN ×4 (04:10→17:06)
[2023-07-05] MEDS: KETOROLAC 30 MG/ML VIAL IVP SCH (04:11)
[2023-07-05 05:42] LABS: BASOPHILS % (AUTO) 0.2 %; EOSINOPHILS # (AUTO) 0.2 10^3/uL (0.0-0.7); EOSINOPHILS % (AUTO) 1.7 %; HCT - HEMATOCRIT 25.8 % (37.0-47.0); HGB - HEMOGLOBIN 7.9 g/dL (12.0-16.0); LYMPHOCYTES # (AUTO) 1.9 10^3/uL (1.5-3.5); LYMPHOCYTES % (AUTO) 17.1 %; MEAN CORPUSCULAR HEMOGLOBIN 27.1 pg (27.0-31.0); MEAN CORPUSCULAR HGB CONC 30.6 g/dL (32.0-36.0); MEAN CORPUSCULAR VOLUME 88.7 fL (81.0-99.0); MEAN PLATELET VOLUME 9.8 fL (7.9-10.8); MONOCYTES # (AUTO) 0.9 10^3/uL (0.0-1.0); MONOCYTES % (AUTO) 7.7 %; NEUTROPHILS # (AUTO) 8.1 10^3/uL (1.5-6.6); NEUTROPHILS % (AUTO) 72.6 %; PLT - PLATELET COUNT 214 10^3/uL (130-450); RED BLOOD COUNT 2.91 10^6/uL (4.20-5.40); RED CELL DISTRIBUTION WIDTH 15.2 % (12.0-15.0); WHITE BLOOD COUNT 11.2 x10^3/uL (4.8-10.8)
[2023-07-05] MEDS: DOCUSATE SODIUM 100 MG CAPSULE PO SCH ×2 (08:43→21:02)
[2023-07-05] MEDS: IBUPROFEN 600 MG TABLET PO SCH ×3 (11:14→22:45)
[2023-07-05] MEDS: SIMETHICONE CHEW 80 MG TABLET PO PRN ×2 (12:13→19:29)
[2023-07-05] MEDS ORDERED: RHO(D) IMMUNE GLOBULIN 300 MCG SYRINGE IM ONE (14:37)
--- NOTE | 2023-07-05 14:47 | PROVIDER PROGRESS NOTE ---
Subjective - Prog Note Date Prog Note Date: 07/05/23 Prog Note Time: 10:00 - Subjective Pt reports feeling: Improved Subjective: Pt well, lochia appropriate, + amb, burger in place, charles PO Feeding going well -- breast Bonding with baby has gotten out of bed x1 with nursing, and will work towards more movement today D/C jennyfer now denies dizziness, SOB, palpitations, NOONAN -- though will monitor as the day progresses and she starts moving more Objective - Vital Signs/Intake & Output Reviewed Vital Signs: Yes Vital Signs: Vital Signs x48h Temp Pulse Resp BP Pulse Ox 07/05/23 12:20 98.1 F 89 18 123/76 99 07/05/23 07:31 97.2 F L 90 118/73 100 Intake & Output: Intake & Output 07/02/23 07/03/23 07/04/23 07/05/23 23:59 23:59 23:59 23:59 Intake Total 1301.5 1750.000 800 Output Total 1350 2700 Balance 1301.5 400.000 -1900 - Objective General Appearance: positive: No acute distress Eyes Bilateral: positive: Normal inspection, PERRL ENT: positive: ENT inspection nml Neck: positive: Nml inspection Respiratory: positive: Chest non-tender, No respiratory distress, Breath sounds nml Cardiovascular: positive: Regular rate & rhythm Abdomen: positive: Non-tender, No distention, Other ([place] at [facility], INC CDI w steris, dressing (dry) removed.) Back: positive: Nml inspection Skin: positive: Color nml, No rash, Warm, Dry Extremities: positive: Non-tender, Other (SCDs in place) Neurologic/Psychiatric: positive: Oriented x3 - Lab Results Fish Bones: 07/05/23 05:34 Other Labs: Lab Results x24hrs 07/05/23 07/05/23 Range/Units 05:34 05:34 WBC 11.2 H (4.8-10.8) x10^3/uL RBC 2.91 L (4.20-5.40) 10^6/uL Hgb 7.9 L (12.0-16.0) g/dL Hct 25.8 L (37.0-47.0) % MCV 88.7 (81.0-99.0) fL MCH 27.1 (27.0-31.0) pg MCHC 30.6 L (32.0-36.0) g/dL RDW 15.2 H (12.0-15.0) % Plt Count 214 (130-450) 10^3/uL MPV 9.8 (7.9-10.8) fL Neut # (Auto) 8.1 H (1.5-6.6) 10^3/uL Lymph # (Auto) 1.9 (1.5-3.5) 10^3/uL Rawlins # (Auto) 0.9 (0.0-1.0) 10^3/uL Eos # (Auto) 0.2 (0.0-0.7) 10^3/uL Baso # (Auto) 0.0 (0.0-0.1) 10^3/uL Absolute Nucleated RBC 0.00 x10^3/uL Nucleated RBC % 0.0 /100WBC Blood Type A NEGATIVE Weak D (Du) WEAK-D NEGATIVE Maternal Bleed NEGATIVE (NEGATIVE) Assessment/Plan - Problem List (1) Acute blood loss anemia Impression: asymptomatic starting PO iron f/u CBC tomorrow AM (2) Post-operative state Impression: D/C burger continue to advance (3) state Impression: continue to advance continue support with (4) Non-reassuring heart rate or rhythm affecting management of mother Impression: resolved continue post care (5) Rh negative status during Impression: awaiting rhogam - baby is Rh positive, mom needs rhogam ordered
[2023-07-05] MEDS: FERROUS SULFATE 325 MG TABLET PO SCH (17:06)
[2023-07-05] MEDS: SODIUM CHLORIDE FLUSH 0.9% 10 ML SYRINGE IVP SCH (19:30)
[2023-07-06] MEDS: ACETAMINOPHEN 500 MG TABLET PO SCH ×3 (04:50→23:29)
[2023-07-06] MEDS: IBUPROFEN 600 MG TABLET PO SCH ×3 (04:51→19:25)
[2023-07-06 05:08] VITALS: O2SAT 100
[2023-07-06 06:19] LABS: BASOPHILS % (AUTO) 0.3 %; EOSINOPHILS # (AUTO) 0.2 10^3/uL (0.0-0.7); EOSINOPHILS % (AUTO) 1.7 %; HCT - HEMATOCRIT 30.3 % (37.0-47.0); HGB - HEMOGLOBIN 9.2 g/dL (12.0-16.0); LYMPHOCYTES # (AUTO) 1.9 10^3/uL (1.5-3.5); LYMPHOCYTES % (AUTO) 16.8 %; MEAN CORPUSCULAR HGB CONC 30.4 g/dL (32.0-36.0); MEAN CORPUSCULAR VOLUME 88.9 fL (81.0-99.0); MEAN PLATELET VOLUME 9.3 fL (7.9-10.8); MONOCYTES # (AUTO) 0.5 10^3/uL (0.0-1.0); MONOCYTES % (AUTO) 4.5 %; NEUTROPHILS # (AUTO) 8.6 10^3/uL (1.5-6.6); NEUTROPHILS % (AUTO) 75.6 %; PLT - PLATELET COUNT 268 10^3/uL (130-450); RED BLOOD COUNT 3.41 10^6/uL (4.20-5.40); RED CELL DISTRIBUTION WIDTH 15.4 % (12.0-15.0); WHITE BLOOD COUNT 11.4 x10^3/uL (4.8-10.8)
[2023-07-06] MEDS: oxyCODONE 5 MG TABLET PO PRN ×2 (08:28→20:01)
[2023-07-06] MEDS: FERROUS SULFATE 325 MG TABLET PO SCH ×2 (08:29→13:12)
[2023-07-06] MEDS: DOCUSATE SODIUM 100 MG CAPSULE PO SCH ×2 (08:29→23:29)
[2023-07-06] MEDS: SIMETHICONE CHEW 80 MG TABLET PO PRN (10:35)
[2023-07-06] MEDS: CALCIUM CARBONATE CHEW 500 MG TABLET PO PRN (19:25)
--- NOTE | 2023-07-06 20:00 | PROVIDER PROGRESS NOTE ---
Subjective - Prog Note Date Prog Note Date: 07/06/23 Prog Note Time: 12:35 - Subjective Pt reports feeling: Improved (has been walking around alot. passing gas. no bm yet. baby still getting iv glucose.) Objective - Vital Signs/Intake & Output Reviewed Vital Signs: Yes Vital Signs: Vital Signs x48h Temp Pulse Resp BP Pulse Ox 07/06/23 18:01 98.2 F 87 18 133/78 H 100 Intake & Output: Intake & Output 07/03/23 07/04/23 07/05/23 07/06/23 23:59 23:59 23:59 23:59 Intake Total 1301.5 1750.000 800 500 Output Total 1350 3495 Balance 1301.5 400.000 -2695 500 - Objective General Appearance: positive: No acute distress Abdomen: positive: Other (abdomen is somewhat tender at fundus. no reobound. wound is healing well.) - Lab Results Fish Bones: 07/06/23 06:13 Other Labs: Lab Results x24hrs 07/06/23 Range/Units 06:13 WBC 11.4 H (4.8-10.8) x10^3/uL RBC 3.41 L (4.20-5.40) 10^6/uL Hgb 9.2 L (12.0-16.0) g/dL Hct 30.3 L (37.0-47.0) % MCV 88.9 (81.0-99.0) fL MCH 27.0 (27.0-31.0) pg MCHC 30.4 L (32.0-36.0) g/dL RDW 15.4 H (12.0-15.0) % Plt Count 268 (130-450) 10^3/uL MPV 9.3 (7.9-10.8) fL Neut # (Auto) 8.6 H (1.5-6.6) 10^3/uL Lymph # (Auto) 1.9 (1.5-3.5) 10^3/uL Archer # (Auto) 0.5 (0.0-1.0) 10^3/uL Eos # (Auto) 0.2 (0.0-0.7) 10^3/uL Baso # (Auto) 0.0 (0.0-0.1) 10^3/uL Absolute Nucleated RBC 0.00 x10^3/uL Nucleated RBC % 0.0 /100WBC Assessment/Plan - Problem List (1) state Impression: doing well. waiting for baby to get off iv. continue current care.
[2023-07-07] MEDS: hydrOXYzine PAMOATE 25 MG CAPSULE PO PRN (01:34)
[2023-07-07] MEDS: IBUPROFEN 600 MG TABLET PO SCH ×3 (01:36→15:53)
[2023-07-07] MEDS: ACETAMINOPHEN 500 MG TABLET PO SCH (09:02)
[2023-07-07] MEDS: FERROUS SULFATE 325 MG TABLET PO SCH (09:03)
[2023-07-07] MEDS: DOCUSATE SODIUM 100 MG CAPSULE PO SCH (09:03)
--- NOTE | 2023-07-07 09:52 | Discharge Plan ---
Discharge Plan Problem Reviewed?: Yes Disposition: Home, Self Care Condition: Good Diet: Regular Activity Restrictions: Additional Comments Shower Restrictions: No Driving Restrictions: Yes (While taking opioid pain medications) Instruction Topics: C Section Dc, Depression No Smoking: If you smoke, Please STOP! Call for help. Follow-up with: Saul Faustin MD [Provider Admit Priv/Credential] -
--- NOTE | 2023-07-07 09:55 | DISCHARGE SUMMARY ---
"Discharge Summary Admit Date: 07/03/23 Discharge Date: 07/07/23 Discharging Provider: Saul Faustin MD Code Status: Attempt Resuscitation Condition at Discharge: Good Discharge Disposition: 01 Home, Self Care - DIAGNOSES Admission Diagnoses: Prelabor rupture of membranes 38 weeks gestation Discharge Diagnoses with Status of Each Condition: Prelabor rupture of membranes 38 weeks gestation intolerance of labor Status post primary low-transverse section Delivery of live bah - HPI History of Present Illness: Subjective Patient reports she is doing well. Lochia appropriate. Denies heavy bleeding. Ambulating. Pelvic and abdominal pain well-controlled. Tolerating oral intake. Diet: Regular. Voiding without difficulty. Passing flatus. Denies BM. Patient is bonding with baby in room Breast feeding going well. Supplementing with bottle Denies feeling lightheaded, dizzy or excessively fatigued. Objective General: Alert, oriented, no apparent distress. Cardiovascular: Regular rate. Regular rhythm. Lungs: No increased work of breathing. Abdomen: Uterus firm. Below umbilicus. No guarding or rebound. Extremities: No pain on palpation. No cords palpated. Distal pulses intact. Incision: Clean, dry, and intact. - CONSULTS | PROCEDURES Consultations: Epidural by anesthesia Procedures: Primary low-transverse section - HOSPITAL COURSE Hospital Course: Patient was admitted at 38 weeks gestation for prelabor rupture of membranes. She was given 2 dose of misoprostol and started on oxytocin. She had intolerance of labor and was counseled on section which was performed without complication. She did have acute blood loss anemia, but this was mild and she was asymptomatic. had some glucose control problems, but she was discharged on day 3 in good condition. - ALLERGIES Allergies/Adverse Reactions: Allergies Allergy/AdvReac Type Severity Reaction Status Date / Time No Known Drug Allergies Allergy Verified 07/04/23 09:02 - MEDICATIONS Home Medications: Ambulatory Orders Medication Instructions Recorded Confirmed Azithromycin [Zithromax] 1 gm PO ONCE #1 packet 12/12/22 Acetaminophen [Acetaminophen Extra 1,000 mg PO Q8H PRN #60 tablet 07/07/23 Strength] Docusate Sodium 100Mg Capsule 100 - 200 mg PO BID PRN #60 cap 07/07/23 [Colace 100Mg Capsule] Ferrous Sulfate 325 mg PO BID #60 tab 07/07/23 Ibuprofen [Motrin] 600 mg PO Q6H PRN #30 tab 07/07/23 oxyCODONE [Roxicodone] 5 mg PO Q4H PRN #20 tablet 07/07/23 - LABS Result Diagrams: 07/06/23 06:13 - FOLLOW UP Follow Up: [facility] - TIME SPENT Time Spent in Discharge (Minutes): 20"
[2023-07-07] MEDS: oxyCODONE 5 MG TABLET PO PRN (10:12)
[2023-07-07] MEDS: SIMETHICONE CHEW 80 MG TABLET PO PRN (17:31)
[2023-07-07 17:34] VITALS: BP 129/62
--- NOTE | 2023-07-07 17:48 | Labor Flowsheet ---
Labor Flowsheet Datetime Report Generated by CPN: 07/07/2023 17:48 Datetime: 07/04/2023 07:44 Pulse: 89 SpO2 (%): 100 LaborFlag: Labor Datetime: 07/04/2023 07:30 VITAL SIGNS NBP Sys/Ksenia/Mean (mmHg): 123 : 77 : 86 Datetime: 07/04/2023 07:20 COMMUNICATION Communication: Provider at Bedside Datetime: 07/04/2023 07:07 Communication Comments: Report given to SVanda Tai, RN I'm relinquishing care of pt at thi s time Datetime: 07/04/2023 07:03 MEDICATIONS Pitocin (milliunits): Discontinued Datetime: 07/04/2023 07:01 ASSESSMENT A Monitor Mode: External US FHR Baseline Rate : 170 FHR Baseline Changes: Tachycardia Variability: Minimal - Undetectable to <=5 bpm Accelerations: None Decelerations: Late; Variable Category: Category II Comments: int periodic mild bin decels noted x3 Medication Comments: for late decels Datetime: 07/04/2023 07:00 Pitocin Checklist: At Least 1 Acceleration of 15 bpm x 15 Seconds in 30 Minutes or Adequate Variabi lity; No More than 2 Variable Decelerations > 60 Seconds in Duration and decreasing >60 bpm in 30 min utes; No More than 5 Uterine Contractions in 10 Minutes for any 20 Minute Interval; Uterus Palpates S oft between Contractions Datetime: 07/04/2023 06:56 Patient Care Comments: amnio infusion rate changed to 125 ml/hr Datetime: 07/04/2023 06:45 UTERINE ACTIVITY Monitor Mode: Internal Frequency (min): 1.5-4 Quality: Moderate Duration (sec): 70-110 Pattern: Normal: <= 5 Contractions in 10 Minutes Resting Tone (Palpate): Relaxed Datetime: 07/04/2023 06:30 Resting Tone IUP (mmHg): 50-70 Intensity IUP (mmHg): 80-95 Contraction Comments: palp soft resting tone multiple times and rezeroed IUPC. High restong tone n umbers possibly d/t position in r/t baby. Datetime: 07/04/2023 06:27 Stage of : Labor Provider Reviewed Strip: Yes Notification Reason: Status Update; Uterine Activity Datetime: 07/04/2023 06:20 Monitor Interventions for UA: IUPC Inserted VAGINAL EXAM Dilatation (cm): 5.0 Effacement (%): 70 Station: -2 Exam by: Kathy Olvera RN Vaginal Bleeding: Normal Show Cervix, Consistency: Soft Cervix, Position: Midposition Datetime: 07/04/2023 06:15 Actions for Decelerations: Side to Side Datetime: 07/04/2023 06:04 Patient Position/Activity: Left Extreme Datetime: 07/04/2023 05:23 Temperature (C): 37.3 Datetime: 07/04/2023 04:41 Provider Notified (Name): Ramin Datetime: 07/04/2023 04:19 Antibiotics: Ampicillin IV 1 Gm Datetime: 07/04/2023 04:18 PATIENT CARE IV/Blood Work: IV Bolus Given ml @ 500; IV Infusing per Order Datetime: 07/04/2023 03:50 Anesthesia Level Check: T8- Ribs Datetime: 07/04/2023 03:48 Vaginal Exam Comments: head well applied to cervix, no BOW felt Datetime: 07/04/2023 03:17 Respirations: 14 Datetime: 07/04/2023 03:01 Anesthesia Comments: INstructed pt to notify RN if needs PCEA button as I will need to monitor BP m ore closely. Pt agreed Datetime: 07/04/2023 02:50 I/O Interventions: Henry Cath Inserted Datetime: 07/04/2023 02:44 Vital Sign Comments: Pt denies dizziness, lightheadedness or nausea, agrees to notify RN if S/S sta rt. Datetime: 07/04/2023 02:32 Epidural Procedure Other: Pump Started Datetime: 07/04/2023 02:30 PAIN Pain Scale: 1 Pain Presence: Intermittent Pain Type: Pressure Pain Location: Abdomen Pain Goal: 6 Pain Relief Measures: Epidural Given Datetime: 07/04/2023 02:29 Monitor Interventions for FHR: Ultrasound Adjusted Datetime: 07/04/2023 02:24 Epidural Procedure: Loading Dose Datetime: 07/04/2023 02:11 PROCEDURE TIME OUT Procedure Verify: Correct Patient Identity; Correct Side and Site are Marked; Accurate Procedure Co nsent Form; Agreement on Procedure to be Done; Correct Patient Position; Safety Precautions Based on Patient History or Medication Use Datetime: 07/04/2023 02:09 ANESTHESIA Anesthesia Plans: Epidural Epidural Positioning: Sitting Datetime: 07/04/2023 01:33 Analgesics/Sedatives: Fentanyl (mcg) @ 50 Datetime: 07/04/2023 00:22 Pain Coping: Breathing Through Contractions; Requesting Pain Medication or Epidural Comfort Measures: Breathing/Relaxation Datetime: 07/03/2023 23:35 Pain Assessment Comments: Pt using nitrous intermittently Datetime: 07/03/2023 20:09 TEACHING Instructional Method: Verbal; Patient Instructed; Family/Support Person Instructed; Verbalized Unde rstanding Plan of Care: Plan of Care Discussed; Vaginal Delivery; Labor; Induction Unit Routine: Monitoring Labor/Induction: Cervical Ripening; Meconium; Interventions; Activity; Pushing Methods Pain Management: IV Narcotics; Epidural; PRN Medications; Pain Scale/Goals; Comfort Measures Medications: IV Narcotics; Pitocin Datetime: 07/03/2023 19:00 Oxygen Method: Room Air Datetime: 07/03/2023 17:38 MATERNAL ASSESSMENT Level of Consciousness: Alert Headache: Denies Breath Sounds, Left: Clear and Equal Breath Sounds, Right: Clear and Equal Nausea/Vomiting: Denies RUQ Epigastric Pain: Denies Datetime: 07/03/2023 13:01 Cervical Ripening Agents: Cytotec @ [facility] [place]
== END 2023-07-07 17:47 | disposition home or self-care (01) | DRG 787 ==
LOC: WFO 10:12 → FBP 10:13 → WFO 11:00 → FBP 11:00
PROVIDERS: ADMIT Obstetrics & Gynecology; ATTEND Obstetrics & Gynecology
PROC: 10H07YZ Insertion of Other Device into Products of Conception, Via Natural or Artificial Opening (ICD-10-PCS; 2023-07-04)
PROC: 10D00Z1 Extraction of Products of Conception, Low, Open Approach (ICD-10-PCS; principal; 2023-07-04 07:45)
DX: O42.02 Full-term premature rupture of membranes, onset of labor within 24 hours of rupture (principal); D62 Acute posthemorrhagic anemia; Z3A.38 38 weeks gestation of pregnancy; Z37.0 Single live birth; O90.81 Anemia of the puerperium; O99.214 Obesity complicating childbirth; E66.09 Other obesity due to excess calories; Z86.19 Personal history of other infectious and parasitic diseases; O35.EXX0 Maternal care for other (suspected) fetal abnormality and damage, fetal genitourinary anomalies, not applicable or unspecified; O76 Abnormality in fetal heart rate and rhythm complicating labor and delivery; O26.893 Other specified pregnancy related conditions, third trimester; Z67.11 Type A blood, Rh negative
CPT/HCPCS: 36415; 83033; 84112; 85025; 86850; 86900; 86901; 99215; A9270; J2274; J2300; J2372; J7120; 59025